=== PATIENT | female | born 1945 | race Caucasian/White ===

== ENCOUNTER 2016-06-12 02:37 | Inpatient (IN) ==
--- NOTE | 2016-06-09 14:45 | EKG Report ---
Test Performed on : 06/09/2016 2:26:11 PM Test Reason : PAT Blood Pressure : / mmHG Vent. Rate : 064 BPM Atrial Rate : 064 BPM P-R Int : 168 ms QRS Dur : 080 ms QT Int : 426 ms P-R-T Axes : 075 -22 -23 degrees QTc Int : 439 ms Sinus rhythm. with premature supraventricular complexes. and with occasional premature ventricular co mplexes. Low voltage QRS Nonspecific T wave abnormality Abnormal ECG When compared with ECG of 19-DEC-2009 10:01, premature ventricular complexes. are now present Nonspecific T wave abnormality, worse in Inferior leads Confirmed by Kolby PINO, Iker Smith ([id number]) on 06/09/2016 4:36:15 PM
[2016-06-09 15:03] LABS: HEMATOCRIT 42.4 % (37.0-47.0); HEMOGLOBIN 13.9 g/dL (12.0-16.0); MCH 28.3 PG (27-31); MCHC 32.8 g/dL (33-37); MCV 86.2 FL (81-99); MPV 11.6 FL (7.4-10.4); RBC 4.92 XMIL (4.2-5.4)
[2016-06-09 15:23] LABS: POTASSIUM 3.7 mmol/L (3.5-5.1)
[2016-06-12] MEDS ORDERED: PEPCID ONE (05:37)
[2016-06-12] MEDS ORDERED: REGLAN ONE (05:37)
[2016-06-12] MEDS ORDERED: ENTEREG ONE (05:38)
[2016-06-12] MEDS ORDERED: LR 1,000 ML ONE ×2 (05:38→09:40)
[2016-06-12] MEDS ORDERED: INVANZ 1 GM/NS 50 ML ONE (05:38)
[2016-06-12] MEDS ORDERED: DUONEB (A & A) INH ONE (06:23)
[2016-06-12] MEDS ORDERED: FENTANYL ONE (06:30)
[2016-06-12] MEDS ORDERED: DIPRIVAN 1% ONE (06:31)
[2016-06-12] MEDS ORDERED: DUONEB (A & A) ONE (06:34)
[2016-06-12] MEDS ORDERED: SODIUM CHLORIDE 0.9% 10 ML ONE (06:42)
[2016-06-12] MEDS ORDERED: MARCAINE 0.25% PF ONE (06:42)
[2016-06-12] MEDS ORDERED: EXPAREL 1.3% ONE (06:43)
[2016-06-12 08:23] LABS: URINE MICRO REVIEW NEEDED? NO; URINE SOURCE CATH
[2016-06-12 08:30] LABS: BILIRUBIN URINE NEGATIVE (NEGATIVE); BLOOD URINE NEGATIVE (NEGATIVE); COLOR YELLOW; GLUCOSE URINE NEGATIVE (NEGATIVE); LEUKOCYTES URINE NEGATIVE (NEGATIVE); NITRITE URINE NEGATIVE (NEGATIVE); PH URINE 6.5; PROTEIN URINE TRACE mg/dL (NEGATIVE); TURBIDITY URINE HAZY (CLEAR); UROBILINOGEN URINE NORMAL (NORMAL)
[2016-06-12 08:31] LABS: UR EPITHELIAL CELLS <10 /HPF (<10); URINE BACTERIA NEGATIVE /HPF; URINE RBC TNTC /HPF (<10); URINE WBC <10 /HPF (<10)
[2016-06-12] MEDS ORDERED: MORPHINE ONE ×2 (09:32→09:57)
[2016-06-12] MEDS ORDERED: NORCURON ONE (09:40)
[2016-06-12] MEDS ORDERED: ROBINUL ONE (09:40)
[2016-06-12] MEDS ORDERED: QUELICIN (DOSE) ONE (09:40)
[2016-06-12] MEDS ORDERED: DECADRON ONE (09:40)
[2016-06-12] MEDS ORDERED: XYLOCAINE-MPF 2% ONE (09:40)
[2016-06-12] MEDS ORDERED: EPHEDRINE ONE (09:40)
[2016-06-12] MEDS ORDERED: NEOSTIGMINE ONE (09:40)
[2016-06-12] MEDS ORDERED: ZOFRAN ONE (09:40)
[2016-06-12] MEDS ORDERED: D5 1/2 NS + KCL 20 MEQ 1,000 ML ONE (09:47)
--- NOTE | 2016-06-12 10:01 | OPERATIVE NOTE ---
PROCEDURE DATE: 06/12/2016 PREOPERATIVE DIAGNOSIS: Cecal polyp with dysplasia. POSTOPERATIVE DIAGNOSIS: Cecal polyp with dysplasia. PRINCIPAL PROCEDURE: Open right hemicolectomy. SURGEON: Karen Quiñones MD CASINO SHIFT MANAGER: Allie BRIGITTE. ANESTHESIA: General. She also underwent a TAP block prior to the incision. ESTIMATED BLOOD LOSS: 100 mL. DRAINS: None. INDICATIONS: Ms. Mackenzie Pacheco is a 71-year-old white female who is a patient of Dr. Jon. At [facility] she underwent a colonoscopy recently which documented a 2 cm polyp in the cecum that was removed by Dr. Jon. The pathology suggested dysplasia within this polyp and she was sent to us for consideration of resection. FINDINGS: She is elderly and slim. She has had an open right upper quadrant incision from cholecystectomy in the past. We performed a formal right hemicolectomy with an end-to-end distal ileum to mid transverse colon double-layer sewn anastomosis. We opened the specimen that was resected and no polyp was left within the cecum. No other lesion was noted in the cecum or the ascending colon. We palpated the rest of her abdomen and no pathology was noted. We felt we did the operation safely with minimal blood loss. DESCRIPTION OF PROCEDURE: The patient underwent a bowel prep at home and presented on the day of surgery. She received IV Invanz prior to surgery and she was also placed on the Entereg protocol. She underwent a TAP block after receiving general anesthesia per our anesthesiologist, Dr. Isrrael Vargas. Her abdomen was prepped and draped in a sterile field. We also placed a Stallworth catheter tube. We did not use an NG tube. An Ioban was placed on the skin and we made a midline incision centered around the umbilicus with a 10 blade scalpel. This incision was carried down through the subcutaneous tissue, in the midline fascia using cautery, and the abdomen was entered she had very little scarring from her previous open cholecystectomy. We mobilized the cecum and ascending colon by incising the peritoneum lateral to the ascending colon and then using blunt finger dissection to mobilize the colon up into our midline incision, we did use a large wound protector for retraction and protection of our wound. We had no contamination during this procedure of the abdomen. We mobilized the ascending colon and also the hepatic flexure to the middle colic vessels. All of this dissection was done mostly using the cautery. We transected the distal ileum approximately 4 cm proximal to the ileocecal valve with a blue load ARIANNA stapler. We transected the transverse colon proximal to the middle colic vessels again with a ARIANNA stapler. We used the cautery and hemostats to come across the blood supply within the mesentery and we did a formal cancer resection, taking the right colic vessels at their base. We used 3-0 silk ties to control these vessels except the larger vessels which we used 2-0 stick ties. The specimen was removed from the field and we performed an end-to-end double-layer sewn anastomosis between the distal ileum and the transverse colon. Our posterior layer was interrupted 3-0 silk stitches. We then removed the staple line using cautery and we used a double-armed, 3-0 Vicryl stitch to reinforce the posterior part of our anastomosis with an interlocking running stitch which was continued as a [place] stitch on the anterior wall of our anastomosis. We reinforced the anterior wall with 3-0 silk Lembert stitches. There was no tension on our anastomosis, blood supply was excellent, and we felt that the caliber of the anastomosis was good. We reapproximated the defect of the mesentery with interrupted 3-0 silk stitches. We thoroughly irrigated the abdomen, explored it thoroughly. No other colonic lesion was identified. We placed the bowel back in anatomically correct position. The remaining greater omentum was placed superficial to the bowel and we closed our midline incision in layers. The first layer was a running 0 Vicryl stitch to close the peritoneum and then we closed the fascia with a running #1 Maxon stitch. We thoroughly irrigated the midline incision and closed the skin with a skin clip rejected items clerk. Dressings were applied. We left her Stallworth catheter tube in place. We did not use an NG tube. She will go to the recovery room and plan to be admitted to the floor. I spoke with her family after the procedure.
[2016-06-12] MEDS ORDERED: TORADOL ONE (10:21)
[2016-06-12] MEDS ORDERED: ZOFRAN IV PRN (12:46)
[2016-06-12] MEDS: OFIRMEV 1000 MG/ISOTONIC SOLN 100 ML IV SCH ×3 (12:58→18:35)
[2016-06-12] MEDS: NORCO-7.5 PO PRN ×2 (12:58→15:19)
[2016-06-12] MEDS: D5 1/2 NS + KCL 20 MEQ 1,000 ML IV SCH (13:19)
[2016-06-12] MEDS: TORADOL IV SCH ×3 (14:29→21:46)
[2016-06-12] MEDS: DUONEB (A & A) INH SCH ×3 (15:21→23:10)
[2016-06-12] MEDS: LOPRESSOR PO SCH ×2 (15:40→20:08)
--- NOTE | 2016-06-12 18:21 | PROGRESS NOTE ---
DATE: 06/12/2016 NIGHT OF SURGERY PROGRESS NODE Ms. Mackenzie Pacheco is a 71-year-old, white female who I performed an open right hemicolectomy on earlier today because of a polyp with dysplasia in her cecum. We felt the operation went well. We performed an end ileum to end transverse colon double-layer sewn anastomosis. She is going to the recovery room and now is up on the floor. I have been called twice this afternoon by her nurse, once for abdominal pain. We are trying to avoid narcotics and she has multiple pain medicines ordered: Mobic, Toradol, IV Tylenol. She also had some nausea and has been given Zofran. I was also called by her nurse because she had passed some clots per rectum. That may have been bleeding from cutting the bowel with the stapler. On evaluation, she is resting comfortably in her bed. She is hemodynamically satisfactory with a heart rate of 69, blood pressure 199/86, O2 saturation 93% on nasal cannula O2. She does have a Stallworth catheter tube in place. There is no evidence of hematuria. She does have urine output. Her midline incision is dressed and dry.
[2016-06-12] MEDS: PERIDEX MT SCH (20:07)
[2016-06-13] MEDS: D5 1/2 NS + KCL 20 MEQ 1,000 ML IV SCH ×3 (00:48→16:19)
[2016-06-13] MEDS: OFIRMEV 1000 MG/ISOTONIC SOLN 100 ML IV SCH ×5 (00:48→18:08)
[2016-06-13] MEDS: DUONEB (A & A) INH SCH ×6 (03:40→22:47)
[2016-06-13] MEDS: TORADOL IV SCH ×3 (03:56→12:21)
[2016-06-13] MEDS: ZOFRAN IV PRN ×3 (03:57→18:08)
[2016-06-13] MEDS: LOVENOX SUBQ SCH (05:41)
[2016-06-13] MEDS ORDERED: ENTEREG PO SCH (09:00)
[2016-06-13] MEDS: MOBIC PO SCH (09:04)
[2016-06-13] MEDS: SYNTHROID PO SCH (09:04)
[2016-06-13] MEDS: LOPRESSOR PO SCH ×2 (09:06→20:12)
[2016-06-13] MEDS: PERIDEX MT SCH ×2 (09:07→20:12)
--- NOTE | 2016-06-13 10:18 | PROGRESS NOTE ---
DATE: 06/13/2016 SUBJECTIVE: Ms. Mackenzie Pacheco is now postop day 1 from an open right hemicolectomy. She is awake and wants to get out of bed. Her heart rate is 70, blood pressure 100/59, O2 saturation 99% on nasal cannula O2. She does have a history of smoking. She still has a Stallworth catheter tube in place. There is no hematuria and her urine output is adequate. Nurses states that she passed some blood per rectum last night, but there is no evidence of any blood per rectum this morning. She has been a little bit nauseated. She has been n.p.o. without an NG tube. PLAN: Tomorrow morning we will remove her Stallworth catheter tube and begin her on clear liquids. We will stop Entereg; we are trying avoid narcotics. She needs to increase her activity and I have discussed this with her nurse.
[2016-06-13] MEDS: NORCO-7.5 PO PRN ×2 (12:22→18:07)
[2016-06-14] MEDS: OFIRMEV 1000 MG/ISOTONIC SOLN 100 ML IV SCH ×3 (02:40→12:45)
[2016-06-14] MEDS: DUONEB (A & A) INH SCH ×5 (03:00→20:00)
[2016-06-14] MEDS: D5 1/2 NS + KCL 20 MEQ 1,000 ML IV SCH ×2 (06:30→17:06)
[2016-06-14] MEDS: LOVENOX SUBQ SCH (06:30)
[2016-06-14] MEDS: SYNTHROID PO SCH (09:00)
[2016-06-14] MEDS: NORCO-7.5 PO PRN (09:00)
[2016-06-14] MEDS: PERIDEX MT SCH ×2 (09:00→20:58)
[2016-06-14] MEDS: MOBIC PO SCH (09:00)
[2016-06-14] MEDS: LOPRESSOR PO SCH ×2 (09:00→20:58)
[2016-06-14] MEDS: ZOFRAN IV PRN (09:00)
--- NOTE | 2016-06-14 10:06 | PROGRESS NOTE ---
DATE: 06/14/2016 SUBJECTIVE: The patient is doing okay, although she is feeling some nausea. No major issues reported by the nursing staff. She has been afebrile. Her vital signs have been stable. She denies passage of flatus. OBJECTIVE: Vital Signs: Patient is currently afebrile. Her vital signs are stable. General: Resting in bed. Cardiovascular: Regular rate and rhythm. Lungs: Grossly clear. Abdomen: Soft, appropriately tender. Incision with dressing in place. Hypoactive bowel sounds auscultated. ASSESSMENT/PLAN: A 71-year-old female, now postop day 2 from a right hemicolectomy. 1. Postoperative day #2. 2. At this time, patient's Stallworth is to be removed. She is started on a clear liquid diet. We will keep her on this given her nausea and monitor her overall. cc: MD Karen Doan MD
[2016-06-15] MEDS: DUONEB (A & A) INH SCH ×7 (00:01→22:59)
[2016-06-15] MEDS: OFIRMEV 1000 MG/ISOTONIC SOLN 100 ML IV SCH ×4 (02:31→18:59)
[2016-06-15] MEDS: D5 1/2 NS + KCL 20 MEQ 1,000 ML IV SCH ×4 (06:49→18:59)
[2016-06-15] MEDS: LOVENOX SUBQ SCH (06:52)
--- NOTE | 2016-06-15 06:58 | PROGRESS NOTE ---
DATE: 06/15/2016 SUBJECTIVE: Patient doing okay. Tolerated her liquids. She had a small bowel movement that by description sounded like old blood but no major issues. OBJECTIVE: Vital Signs: Patient is currently afebrile. Her vital signs have been stable. General Examination: No acute distress. Cardiovascular: Regular rate and rhythm. Lungs: Grossly clear. Abdomen: Soft, appropriately tender, nondistended. Incision with dressing in place. Bowel sounds auscultated. ASSESSMENT/PLAN: A 71-year-old, female now postoperative day #3 from a right hemicolectomy. Postoperative day #3. At this time, patient has tolerated a clear liquid diet. We will advance her to full liquids. We will continue to wait return of bowel function. Her Stallworth catheter is out and she is able to void. We will continue to monitor. cc: MD Karen Doan MD
[2016-06-15] MEDS: PERIDEX MT SCH ×2 (09:00→20:03)
[2016-06-15] MEDS: LOPRESSOR PO SCH ×2 (09:00→20:03)
[2016-06-15] MEDS: ZOFRAN IV PRN (09:00)
[2016-06-15] MEDS: MOBIC PO SCH (09:00)
[2016-06-15] MEDS: SYNTHROID PO SCH (09:00)
[2016-06-15] MEDS: NORCO-7.5 PO PRN (14:18)
[2016-06-16] MEDS: D5 1/2 NS + KCL 20 MEQ 1,000 ML IV SCH ×2 (02:17→06:53)
[2016-06-16] MEDS: OFIRMEV 1000 MG/ISOTONIC SOLN 100 ML IV SCH ×2 (02:17→06:33)
[2016-06-16] MEDS: DUONEB (A & A) INH SCH ×6 (03:30→23:00)
[2016-06-16] MEDS: LOVENOX SUBQ SCH (06:33)
[2016-06-16] MEDS ORDERED: TYLENOL PO PRN (07:37)
--- NOTE | 2016-06-16 08:01 | PROGRESS NOTE ---
DATE: 06/16/2016 SUBJECTIVE: Ms. Pacheco is postop day 4 from a right hemicolectomy. Her postoperative convalescence has been normal. She is tolerating a full liquid diet and will advance her diet to a regular diet. We will stop her IV Tylenol and she is on all p.o. pain medicine. We will Hep- Lock her IV fluids. OBJECTIVE: Vital signs: Her heart rate is 63, blood pressure 102/47, O2 saturation 96%. Her T- max is 99 degrees on no antibiotics. Abdomen: Her midline incision is healing without infection. Her abdomen is soft. She has had bowel activity. cc: Karen Quiñones MD
[2016-06-16] MEDS: SYNTHROID PO SCH (08:21)
[2016-06-16] MEDS: LOPRESSOR PO SCH ×2 (08:21→20:59)
[2016-06-16] MEDS: PERIDEX MT SCH ×2 (08:22→20:59)
[2016-06-16] MEDS: MOBIC PO SCH (08:22)
[2016-06-16] MEDS: ZOFRAN IV PRN ×2 (10:57→19:01)
[2016-06-16] MEDS: NORCO-7.5 PO PRN (19:00)
[2016-06-17] MEDS: DUONEB (A & A) INH SCH ×4 (03:25→15:18)
[2016-06-17] MEDS: LOVENOX SUBQ SCH (06:42)
[2016-06-17] MEDS: LOPRESSOR PO SCH (08:23)
[2016-06-17] MEDS: PERIDEX MT SCH (08:24)
[2016-06-17] MEDS: SYNTHROID PO SCH (08:24)
[2016-06-17] MEDS: MOBIC PO SCH (08:24)
[2016-06-17 15:53] VITALS: BP 147/64
[2016-06-17] MEDS: ZOFRAN IV PRN (16:18)
--- NOTE | 2016-06-18 05:32 | DISCHARGE SUMMARY ---
ADMISSION DATE: 06/12/2016 DISCHARGE DATE: 06/17/2016 ADMITTING DIAGNOSIS: Polyp with dysplasia in the cecum. DISCHARGE DIAGNOSIS: Polyp with dysplasia in the cecum. PRINCIPAL PROCEDURE: Open right hemicolectomy with a sewn end to end distal ileum to mid transverse colon anastomosis on 05/16/2016. DISCHARGE DISABILITY: Full. DISCHARGE DIET: Regular. DISCHARGE MEDICATIONS: She is to return to her home medications. HOSPITAL COURSE: Ms. Mackenzie Pacheco is a 71-year-old white female who recently underwent a colonoscopy by Dr. Jon. She had a polyp removed that showed dysplasia and she was sent to us for resection. It was described as being in the cecum. She underwent a bowel prep prior to her presentation. She was given oral antibiotics and then IV Invanz. She was started on our Entereg protocol. She went to the operating room and underwent an open right hemicolectomy with a sewn end to distal ileum to mid transverse colon anastomosis. We felt the surgery went well. I opened the specimen while in the operating room, and there was no evidence of this polyp or any other growth in the cecum. The rest of her abdomen was felt to be normal with no other pathology. We felt we did the operation well. We did not use an NG tube. She did have a Stallworth catheter tube. She went to the recovery room and then to the floor where we feel that her postoperative convalescence has been normal. At discharge, her incision was healing well. She was tolerating a diet. She is having bowel activity. Her abdomen was flat. She was afebrile. She will be discharged home under the care of her family with followup in our outpatient offices in a week for skin clip removal. Her pathology report is pending. cc: MD Heber Benoit MD
== END 2016-06-17 17:00 | disposition home or self-care (01) ==
LOC: SURHOLD 02:37 → 4N 11:52
PROVIDERS: ADMIT Surgery; ATTEND Surgery

== ENCOUNTER 2016-08-21 14:02 | Inpatient (IN) ==
[2016-08-21] MEDS ORDERED: ASPIRIN PO ONE (14:16)
[2016-08-21] MEDS ORDERED: DUONEB (A & A) INH ONE (14:20)
[2016-08-21] MEDS ORDERED: SOLU-MEDROL IV ONE (14:20)
[2016-08-21] MEDS ORDERED: PULMICORT INH ONE (14:20)
--- NOTE | 2016-08-21 14:34 | EKG Report ---
Test Performed on : 08/21/2016 2:27:52 PM Test Reason : sob cp Blood Pressure : / mmHG Vent. Rate : 076 BPM Atrial Rate : 076 BPM P-R Int : 152 ms QRS Dur : 082 ms QT Int : 426 ms P-R-T Axes : 074 -04 033 degrees QTc Int : 479 ms Sinus rhythm. with occasional premature ventricular complexes. Nonspecific ST and T wave abnormality Abnormal ECG When compared with ECG of 09-JUN-2016 14:26, premature supraventricular complexes. are no longer present Nonspecific T wave abnormality, improved in Inferior leads Unconfirmed Result
[2016-08-21 14:35] LABS: BASO% 0.2 % (0.0-0.8); HEMATOCRIT 23.2 % (37.0-47.0); HEMOGLOBIN 6.1 g/dL (12.0-16.0); IMM GRAN# 0.04 X1000 (0.0-0.04); IMM GRAN% 0.6 % (0.0-0.5); LYMPH# 1.28 X1000 (1.2-3.4); LYMPH% 19.6 % (20.5-51.1); MANUAL DIFF NEEDED? NO; MCH 17.6 PG (27-31); MCHC 26.3 g/dL (33-37); MCV 67.1 FL (81-99); MONO# 0.43 X1000 (0.11-0.59); MONO% 6.6 % (1.7-9.3); PLT 257 X1000 (130-400); RBC 3.46 XMIL (4.2-5.4)
[2016-08-21 14:56] LABS: AGAP 13; ALBUMIN 3.9 g/dL (3.5-5.0); ALKALINE PHOSPHATASE 83 U/L (32-104); BUN 13 mg/dL (8-22); CALCIUM 8.8 mg/dL (8.8-10.2); CHLORIDE 102 mmol/L (98-107); CK PROFILE 19 U/L (24-173); COSMO 279; GOT 10 U/L (10-30); GPT 5 U/L (10-36); SODIUM 139 mmol/L (136-145); TCO2 24 mmol/L (25-35); TOTAL PROTEIN 6.6 g/dL (6.3-8.3)
--- NOTE | 2016-08-21 15:22 | Diag Imaging Result Doc PS360 ---
CHEST-2 VIEWS - 08/21/2016 INDICATION: soc copd cp TECHNIQUE: COMPARISON: 01/09/2016 FINDINGS: Stable moderate hiatal hernia behind the heart. The lungs are clear. Heart size is grossly normal. No pneumothorax or pleural effusion. IMPRESSION: Hiatal hernia. No acute disease or change from prior. Electronically signed by Kahlil Langston 08/21/2016 3:19 PM
[2016-08-21] MEDS ORDERED: MORPHINE IV ONE ×2 (15:57→15:58)
[2016-08-21] MEDS ORDERED: ZOFRAN IV ONE (15:57)
[2016-08-21 16:10] LABS: BLOOD TYPE ARTERIAL; DRAW SITE R RADIAL; METHB 1.3 % (0.0-1.5); O2(CT) 8.5 mL/dL (15.0-23.0); PCO2(98.6) 35 mmHg (35-45); PO2(98.6) 58 mmHg (60-100); SAMPLE BLOOD; THB 6.6 g/dL (11.5-17.4); pH(98.6) 7.46 (7.35-7.45)
[2016-08-21 16:14] LABS: ALLEN TEST YES; MODALITY ROOM AIR
[2016-08-21 16:31] LABS: URINE CULTURE PL NEEDED? NO
[2016-08-21] MEDS ORDERED: KLOR-CON PO ONE (16:42)
[2016-08-21] MEDS ORDERED: LEVAQUIN 500 MG/D5W 500 MG/100 ML IVPB IV SCH (16:45)
[2016-08-21 16:48] LABS: OCCULT BLOOD 1 NEGATIVE (NEGATIVE)
--- NOTE | 2016-08-21 16:49 | PROVIDER DOCUMENTATION ---
This chart was entered by Maria Elena Munoz Scribe, acting as scribe for Adilene Gatica MD. HPI-Respiratory General - General Chief Complaint: Shortness of Breath Stated Complaint: SOB/CHEST PAIN Time Seen by Provider: 08/21/16 14:12 Source: patient Allergies/Adverse Reactions: Patient Allergies Allergy/AdvReac Type Severity Reaction Status Date / Time No Known Allergies Allergy Verified 03/12/14 10:13 Home Medications: Home Medication List Medication Instructions Recorded Confirmed Last Taken Type Levothyroxine [Synthroid] 75 mcg DAILY 03/23/15 06/12/16 06/12/16 04:00 History Meloxicam [Mobic] 1 tab PO DAILY 01/09/16 06/09/16 06/08/16 History Metoprolol Tartrate 50 mg PO BID 06/09/16 06/12/16 06/05/16 09:00 History - History of Present Illness-Resp Nature of Presenting Problem: 71 yo F presents to the ER with complaint of SOB and cough. Pt was at PCP yesterday and diagnosed with penumonia. States she got a nebulizer machine yesterday but is waiting for the medicine to come. Was given steroids and levoquin, but states no relief. Has chest tightness. Cough Quality/Degree: reports: moderate Current Respiratory Medication Therapy: Initiated prednisone Associated Symptoms: reports: chest pain/soreness, cough, shortness of breath, short of breath Review of Systems - Adult - REVIEW OF SYSTEMS - ADULT Constitutional: denies: chills, fever Eyes: reports: no symptoms reported Ears, Nose, Mouth & Throat: reports: no symptoms reported Cardiovascular: reports: chest pain. denies: palpitations Respiratory: reports: cough, shortness of breath Gastrointestinal: denies: diarrhea, nausea, vomiting Genitourinary: reports: no symptoms reported Musculoskeletal: reports: no symptoms reported Integumentary: reports: no symptoms reported Neurological: reports: no symptoms reported Psychiatric: reports: no symptoms reported Endocrine: reports: no symptoms reported Hematologic/Lymphatic: reports: no symptoms reported Allergic/Immunologic: reports: no symptoms reported All Other Systems: Reviewed and Negative Past History - Adult - PAST MEDICAL HISTORY-ADULT Review of Records: reports: Nursing Assessment Review, Medications Reviewed Cardiovascular: reports: arrhythmia, HTN Respiratory: reports: asthma Endocrine/Immune: reports: thyroid disorder - PRIOR SURGERIES/PROCEDURES Surgical/Procedure History: reports: appendectomy, cholecystectomy, other ( partial colon resection) - IMMUNIZATION STATUS Childhood Immunizations: See Nurse Assessment Flu Vaccine: See Nurse Assessment Physical Exam-General - PHYSICAL EXAM-ADULT Initial Vital Signs Reviewed: Yes - CONSTITUTIONAL General Appearance: alert, no apparent distress - EYES Eyes: PERRL/EOMI, pink conjunctivae - HEAD, EARS, NOSE, MOUTH & THROAT HENMT: normocephalic/atraumatic, normal ENT inspection - NECK Neck: supple, normal inspection - RESPIRATORY Respiratory: no respiratory distress, no accessory muscle use, decreased breath sounds - CARDIOVASCULAR Cardiovascular: normal peripheral pulses, regular rate, rhythm - GASTROINTESTINAL (ABDOMEN) Abdominal Exam: normal bowel sounds, non tender, soft - MUSCULOSKELETAL Back Exam: no CVA tenderness, no vertebral tenderness Extremity: normal gait, normal inspection - SKIN Integumentary: normal color, warm/dry - NEUROLOGIC Neurologic: grossly normal, no motor/sensory deficits - PSYCHIATRIC Psych/Mental Status: normal mood/affect, normal thought content, normal thought process, oriented x 3 Progress - PLAN OF CARE/RESULTS Progress/Plan/Lab Results: Vital Signs - 8 hr 08/21/16 14:11 08/21/16 14:20 08/21/16 15:05 Temperature 98.9 F Pulse Rate 82 98 H 93 H Respiratory Rate 18 16 22 Blood Pressure 165/70 159/78 O2 Sat by Pulse Oximetry 100 96 08/21/16 16:31 Temperature Pulse Rate 81 Respiratory Rate 18 Blood Pressure 151/77 O2 Sat by Pulse Oximetry 94 L Laboratory Results - last 24 hr 08/21/16 08/21/16 08/21/16 14:18 14:18 14:18 WBC 6.53 RBC 3.46 L Hgb 6.1 L Hct 23.2 L MCV 67.1 L MCH 17.6 L MCHC 26.3 L RDW Std Deviation 21.4 H Plt Count 257 MPV Not Reportable Immature Gran % (Auto) 0.6 H Neut % (Auto) 73.0 Lymph % (Auto) 19.6 L [place] % (Auto) 6.6 Eos % (Auto) 0.0 Baso % (Auto) 0.2 Immature Gran # (Auto) 0.04 Neut # (Auto) 4.77 Lymph # (Auto) 1.28 [place] # (Auto) 0.43 Eos # (Auto) 0.00 Baso # (Auto) 0.01 D-Dimer Specimen Type Sample Site pH pCO2 pO2 HCO3 Base Excess Oxyhemoglobin ABG O2 Sat (Calculated) ABG O2 Saturation ABG Carboxyhemoglobin ABG Methemoglobin Iker Test A-a O2 Difference Total Hemoglobin Lactate Blood Gas Modality FiO2 % Sodium 139 Potassium 3.0 L Chloride 102 Carbon Dioxide 24 L Anion Gap 13 BUN 13 Creatinine 0.8 Estimated GFR/1.73 m2 > 60 BUN/Creatinine Ratio 16 Glucose 126 H Calculated Osmolality 279 Calcium 8.8 Magnesium Total Bilirubin 0.30 AST 10 ALT 5 L Alkaline Phosphatase 83 Creatine Kinase 19 L Fwv-[id number]-Gluagjljtdq Pept 4332 H Total Protein 6.6 Albumin 3.9 Globulin 3.0 Albumin/Globulin Ratio 1.0 Plasma Lactate 08/21/16 08/21/16 08/21/16 14:18 14:18 14:30 WBC RBC Hgb Hct MCV MCH MCHC RDW Std Deviation Plt Count MPV Immature Gran % (Auto) Neut % (Auto) Lymph % (Auto) [place] % (Auto) Eos % (Auto) Baso % (Auto) Immature Gran # (Auto) Neut # (Auto) Lymph # (Auto) [place] # (Auto) Eos # (Auto) Baso # (Auto) D-Dimer 0.65 H Specimen Type Sample Site pH pCO2 pO2 HCO3 Base Excess Oxyhemoglobin ABG O2 Sat (Calculated) ABG O2 Saturation ABG Carboxyhemoglobin ABG Methemoglobin Iker Test A-a O2 Difference Total Hemoglobin Lactate Blood Gas Modality FiO2 % Sodium Potassium Chloride Carbon Dioxide Anion Gap BUN Creatinine Estimated GFR/1.73 m2 BUN/Creatinine Ratio Glucose Calculated Osmolality Calcium Magnesium 2.0 Total Bilirubin AST ALT Alkaline Phosphatase Creatine Kinase Fki-Z-Ilfjfeimryg Pept Total Protein Albumin Globulin Albumin/Globulin Ratio Plasma Lactate 2.5 H 08/21/16 15:50 WBC RBC Hgb Hct MCV MCH MCHC RDW Std Deviation Plt Count MPV Immature Gran % (Auto) Neut % (Auto) Lymph % (Auto) [place] % (Auto) Eos % (Auto) Baso % (Auto) Immature Gran # (Auto) Neut # (Auto) Lymph # (Auto) [place] # (Auto) Eos # (Auto) Baso # (Auto) D-Dimer Specimen Type ARTERIAL Sample Site R RADIAL pH 7.46 H pCO2 35 pO2 58 L HCO3 25.7 Base Excess 1.0 Oxyhemoglobin 90.6 L ABG O2 Sat (Calculated) 8.5 L ABG O2 Saturation 97.0 ABG Carboxyhemoglobin 5.30 H* ABG Methemoglobin 1.3 Iker Test YES A-a O2 Difference 48.0 Total Hemoglobin 6.6 L Lactate 2.40 H Blood Gas Modality ROOM AIR FiO2 % 21.0 Sodium Potassium Chloride Carbon Dioxide Anion Gap BUN Creatinine Estimated GFR/1.73 m2 BUN/Creatinine Ratio Glucose Calculated Osmolality Calcium Magnesium Total Bilirubin AST ALT Alkaline Phosphatase Creatine Kinase Ibw-S-Wonzsdbvfzz Pept Total Protein Albumin Globulin Albumin/Globulin Ratio Plasma Lactate Orders Category Date Time Status Cardiac Monitoring DIRECTED Care 08/21/16 14:16 Active CHEST-2 VIEWS [RAD] Stat Exams 08/21/16 14:16 Completed ABG [RESP] Routine Lab 08/21/16 15:50 Completed BLOOD CULTURE [BLDCUL] Stat Lab 08/21/16 14:20 Ordered CBC WITH DIFF [HEME] Stat Lab 08/21/16 14:18 Completed CK PROFILE [SP CHEM] Stat Lab 08/21/16 14:18 Completed COMPREHENSIVE METABOLIC PANEL [CHEM] Stat Lab 08/21/16 14:18 Completed D-DIMER PL [COAG] Stat Lab 08/21/16 14:18 Completed LACTATE, PLASMA [CHEM] Stat Lab 08/21/16 14:30 Completed MAGNESIUM [CHEM] Stat Lab 08/21/16 14:18 Completed OCCULT BLOOD SCREEN STOOL PL Stat Lab 08/21/16 16:31 Ordered PRO B-NATRIURETIC PEPTIDE Stat Lab 08/21/16 14:18 Completed TYPE & SCREEN [BBK] Stat Lab 08/21/16 16:00 Ordered ua [URINALYSIS PL W/POSS RFLX CULT] [URINALYSIS] Stat Lab 08/21/16 16:15 Received Albuterol 2.5MG/Ipratrop 0.5MG [Duoneb (A & A)] Med 08/21/16 14:20 Discontinued 3 ml INH NOW ONE Aspirin Med 08/21/16 14:16 Discontinued 325 mg PO NOW ONE Budesonide [Pulmicort] Med 08/21/16 14:20 Discontinued 0.5 mg INH NOW ONE Levofloxacin 500 mg/D5w [Levaquin 500 mg/D5w] Med 08/21/16 16:45 Active 500 mg in 100 ml IV Q24H Methylprednisolone Sod Succ [Solu-Medrol] Med 08/21/16 14:20 Discontinued 125 mg IV NOW ONE Morphine Med 08/21/16 15:58 Discontinued 2 mg IV NOW ONE Ondansetron [Zofran] Med 08/21/16 15:57 Discontinued 4 mg IV NOW ONE Potassium Chloride E.r. [Klor-Con] Med 08/21/16 16:42 Discontinued 40 meq PO NOW ONE Aerosol Treatments Routine Oth 08/21/16 14:20 Completed Aerosol Treatments Stat Oth 08/21/16 14:20 Completed EKG [EKG] Stat Ther 08/21/16 14:16 Draft Result Diagrams: 08/21/16 14:18 08/21/16 14:18 - EKG 1 Time of EKG reading by physician:: 14:27 EKG Read and Signed by:: Adilene Gatica EKG Interpretation (*Must complete 3 of following elements*): Abnormal Rate: 76 Rhythm: sinus rhythm with occasional PVC [place]: normal QRS: normal ST Wave: non-specific ST changes - XRAY 1 XRAY Study: Chest Impression: Abnormal (hiatal hernia, NAD or change from prior, per radiologist) - CONSULTS/PCP/HOSPITALIST Notification #1 *Consult/PCP/Hospitalist*: Dr. Almaguer Time Discussed: 16:45 Consult Disposition: Admit Departure - Departure Date of Disposition Decision: 08/21/16 Time of Disposition Decision: 16:45 DIAGNOSIS: Pneumonia, Chest pain Anemia Qualifiers: Anemia type: unspecified type Qualified Code(s): D64.9 - Anemia, unspecified CHF (congestive heart failure) Qualifiers: Congestive heart failure type: unspecified congestive heart failure type Congestive heart failure chronicity: acute Qualified Code(s): I50.9 - Heart failure, unspecified Disposition: ADMITTED INPATIENT 09 Certified Medical Emergency: Emergent Condition: Stable Referrals and Follow-Ups: Marcy Head CRNP [Primary Care Provider] - - Critical Care Note This patient required my direct & personal management of CC.: No This chart was documented by the indicated scribe, (Maria Elena Munoz Scribe) and accurately reflects the services I performed and decisions made by me, Adilene Gatica MD, as attested by the provider's signature.
[2016-08-21 17:07] LABS: BILIRUBIN URINE NEGATIVE (NEGATIVE); BLOOD URINE NEGATIVE (NEGATIVE); CLARITY CLEAR (CLEAR); COLOR YELLOW; GLUCOSE URINE NEGATIVE (NEGATIVE); LEUKOCYTES URINE NEGATIVE (NEGATIVE); NITRITE URINE NEGATIVE (NEGATIVE); PROTEIN URINE TRACE mg/dL (NEGATIVE); UROBILINOGEN URINE NORMAL
[2016-08-21 17:14] LABS: URINE EPITHELIAL CELLS <10 /HPF (<10); URINE RBC <10 /HPF (<10); URINE SOURCE CLEAN CATCH; URINE WBC <10 /HPF (<10)
[2016-08-21] MEDS ORDERED: TYLENOL PO ONE (19:22)
[2016-08-21] MEDS ORDERED: BENADRYL PO ONE ×2 (19:22→22:15)
[2016-08-21] MEDS ORDERED: TYLENOL PO PRN (19:23)
[2016-08-21] MEDS ORDERED: SALINE LOCK IV FLUID XX ONE (19:23)
[2016-08-21] MEDS ORDERED: ZOFRAN IV PRN (19:23)
[2016-08-21] MEDS ORDERED: BENADRYL ONE (22:01)
[2016-08-21] MEDS: LOPRESSOR PO SCH (22:05)
[2016-08-21] MEDS ORDERED: NS 1,000 ML ONE (22:09)
[2016-08-21] MEDS: NICODERM PATCH TD SCH (22:49)
[2016-08-22] MEDS: LASIX IV SCH ×2 (01:25→04:39)
[2016-08-22] MEDS ORDERED: LASIX ONE (04:37)
[2016-08-22] MEDS ORDERED: PRILOSEC PO SCH (07:00)
[2016-08-22] MEDS ORDERED: SYNTHROID PO SCH (07:30)
[2016-08-22 07:54] LABS: HEMOGLOBIN 9.5 g/dL (12.0-16.0); MCH 20.8 PG (27-31); MCHC 29.7 g/dL (33-37); PLT 255 X1000 (130-400); RBC 4.57 XMIL (4.2-5.4)
[2016-08-22 08:16] LABS: AGAP 12; ALBUMIN 4.1 g/dL (3.5-5.0); ALKALINE PHOSPHATASE 83 U/L (32-104); BUN 16 mg/dL (8-22); CALCIUM 9.6 mg/dL (8.8-10.2); CHLORIDE 101 mmol/L (98-107); COSMO 283; GOT 10 U/L (10-30); GPT 6 U/L (10-36); HDL 47 mg/dL (45-65); LDL 62 mg/dL; POTASSIUM 4.2 mmol/L (3.5-5.1); SODIUM 141 mmol/L (136-145); TCO2 28 mmol/L (25-35); TOTAL PROTEIN 6.5 g/dL (6.3-8.3); TRIGLYCERIDES 55 mg/dL (35-135); VLDL 11 mg/dL
[2016-08-22 08:18] LABS: FREE T4 1.26 ng/dL (0.93-1.70)
[2016-08-22] MEDS ORDERED: ASPIRIN EC PO SCH (09:00)
[2016-08-22] MEDS ORDERED: THERA M PLUS PO SCH (09:00)
[2016-08-22] MEDS: LOPRESSOR PO SCH (09:43)
[2016-08-22] MEDS: NICODERM PATCH TD SCH (09:43)
--- NOTE | 2016-08-22 11:05 | HISTORY AND PHYSICAL ---
PRIMARY CARE PHYSICIAN: SHIVANI Crawford in [place]. CHIEF COMPLAINT: Shortness of breath and cough. HISTORY OF PRESENTING ILLNESS: This is a 71-year-old, female, who presents to [facility] ER with complaints of shortness of breath and cough that had progressively worsened. States on 08/20/2016 she saw her primary care physician and had been diagnosed with pneumonia. Was started on Levaquin and steroids. States she did not have any relief in her symptoms. She came to the emergency room. We did a chest x-ray that did not show any acute disease or change. It is noted that she had a partial colon resection on 06/12/2016 and was discharged on 06/17/2016. Her laboratory data showed a hemoglobin of 6.1 and hematocrit of 23.2. Her D-dimer was 0.65, but that is most likely related to her recent abdominal surgery. Her potassium was 3.0. ProBNP was 4332 with a plasma lactate of 2.5. We did do a Hemoccult of her stool and it was negative, so she was admitted for further evaluation and treatment. PAST MEDICAL HISTORY: Hypertension, asthma and hypothyroidism. PAST SURGICAL HISTORY: An appendectomy, cholecystectomy and partial colon resection. FAMILY HISTORY: Heart disease in her father and son, hypothyroidism in her daughter. SOCIAL HISTORY: She currently lives with her son. Smokes a half a pack a day for the past 40 years. Denied any alcohol or illicit drug use. ALLERGIES: She has no known drug allergies. HOME MEDICATIONS: She takes Synthroid 75 mcg p.o. daily, metoprolol 50 mg p.o. b.i.d., and a multivitamin 1 p.o. daily. LABORATORY DATA: Showed a white blood cell count of 6.53, a hemoglobin of 6.1, hematocrit 23.2, platelets 257. D-dimer of 0.65. An ABG with a pH of 7.46, pCO2 of 35, PO2 58, bicarbonate of 25.7. Sodium of 139, potassium 3.0, chloride 102, CO2 24, BUN of 13, creatinine 0.8, glucose 126, magnesium of 2.0. AST 10, ALT 5. Cardiac enzymes were negative. ProBNP of 4332. Plasma lactate of 2.5. Urinalysis was negative and stool for occult blood was negative. IMAGING: Chest x-ray showed no acute disease or change from prior. EKG showed sinus rhythm with occasional PVCs at 76. REVIEW OF SYSTEMS: She denied any fever, chills, blurred vision, some mild dizziness, shortness of breath, cough. Denied any chest pain, abdominal pain, nausea, vomiting, constipation, diarrhea, or burning or hurting with urination. PHYSICAL EXAMINATION: VITAL SIGNS: On arrival, she had a temperature of 98.9 degrees, a pulse of 82, respirations 18, blood pressure 165/70, satting 100% on room air. GENERAL: This is a 71-year-old, female, who is lying in the bed and answers questions appropriately. HEENT: Normocephalic and atraumatic. Pupils are equal, round, reactive to light. The extraocular movements are intact. The oropharynx and nares are clear. NECK: Supple. LUNGS: Clear to auscultation bilaterally with equal lung expansion and chest wall movement. HEART: With regular rate and rhythm. No murmurs, rubs, or gallops. ABDOMEN: Soft, nontender, nondistended. Bowel sounds are present x4 quadrants. EXTREMITIES: No clubbing, cyanosis, or edema. NEUROLOGICAL: The cranial nerves 2-12 are grossly intact. ASSESSMENT: 1. Anemia, most likely secondary to her recent partial colon resection. 2. Dyspnea, secondary to her anemia. 3. Hypokalemia. 4. Tobacco abuse. PLAN: She was admitted to the medical unit at [facility]. She was given 2 units of packed red blood cells. Placed on telemetry. We will check an echocardiogram. She was initially started on some Levaquin 500 mg IV q. 24 hours for presumed pneumonia, but her chest x-ray was clear. So, we will stop that. Continue her home medications. She was supplemented with 40 mEq of potassium p.o. x1. We will recheck CBC and a BMP in the a.m. She was also given 40 mg of Lasix IV after her transfusions were completed. We also gave a nicotine patch 21 mg transdermally daily. Pt is a full code. Dictated by SHIVANI Nguyen for Finn Almaguer MD cc: SHIVANI Nguyen MD Jennifer Beatty, CRNP [facility]ITALAndrew
[2016-08-22 11:23] VITALS: BP 133/64
--- NOTE | 2016-08-22 14:15 | DISCHARGE SUMMARY ---
ADMISSION DATE: 08/21/2016 DISCHARGE DATE: 08/22/2016 PRIMARY CARE PHYSICIAN: SHIVANI Crawford ADMISSION DIAGNOSES: 1. Anemia, most likely secondary to her recent partial colon resection. 2. Dyspnea secondary to her anemia. 3. Hypokalemia. 4. Tobacco abuse. DISCHARGE DIAGNOSES: 1. Anemia resolved. 2. Dyspnea secondary to anemia resolved. 3. Hypokalemia resolved. 4. Tobacco abuse. SUMMARY OF FINDINGS: This is a 71-year-old, female who presented with complaints of shortness of breath and cough that had progressively worsened. States that she saw her primary care physician on 08/20/2016 and had been diagnosed with a pneumonia and was started on Levaquin and steroids with no relief in her symptoms so she came to the emergency room. We did a chest x- ray that did not show any acute disease or change. She was noted to have had a partial colon resection: 06/12/2016 and was discharged on 06/17/2016. Workup in the ER showed an hemoglobin and hematocrit of 6.1 and 23.2 with a D-dimer of 0.65 that was most likely related to her recent abdominal surgery. She was given 2 units of packed red blood cells. Now her hemoglobin and hematocrit are up to 9.5 and 32. We supplemented her potassium that was 3.0 and it is now up to 4.2. We did a Hemoccult of her stool that was negative and so it is felt that she can safely be discharged home today. DISCHARGE MEDICATION: Will include her home medications as follows: Levothyroxine 75 mcg p.o. daily, metoprolol 50 mg p.o. b.i.d., multivitamin with iron 1 p.o. daily. FOLLOWUP: She will need to follow up with her primary care physician in 1-2 weeks. DISCHARGE INSTRUCTIONS: All discharge instructions have been reviewed with the patient and she verbalized understanding. TIME SPENT: A 35-minute discharge. Dictated by SHIVANI Nguyen for Finn Almaguer MD cc: SHIVANI Crawford CRNP [facility] S. Cheatham, MD
--- NOTE | 2016-08-22 15:56 | ECHO REPORT ---
ORDER DATE: 08/22/2016 INDICATION: Elevated proBNP, shortness of breath, chest pain. FINDINGS: 1. Right atrium is normal in size at 3.3 cm. 2. Mild tricuspid regurgitation. 3. RV systolic pressure of 57. 4. Normal RV size and systolic function. 5. No significant pulmonic insufficiency. 6. Mild left atrial enlargement at 4 cm. 7. No mitral prolapse. There is mild mitral annular calcification, as well as mild mitral regurgitation. No evidence of mitral stenosis. 8. Normal LV size, end-diastolic dimension of 4.4. Moderate left ventricular hypertrophy with a posterior and interventricular septal wall thickness 1.5 cm each. Normal LV systolic function. Calculated EF of 69% with normal wall motion. 9. Aortic valve opens well. It is trileaflet. No evidence of stenosis or insufficiency. 10. Aorta appears normal in visualized segments. 11. No pericardial effusion is seen. cc: MD Radha Rod CRNP
== END 2016-08-22 13:10 | disposition home health service (06) ==
LOC: P.ED 14:02 → P.MEDSURG 17:34
PROVIDERS: ATTEND Family Medicine

== ENCOUNTER 2019-03-06 12:29 | Inpatient (IN) ==
[2019-03-06] MEDS ORDERED: DUONEB (A & A) INH ONE (12:44)
[2019-03-06] MEDS ORDERED: ROCEPHIN 1 GM in NS 50 ML IV ONE (12:44)
[2019-03-06] MEDS ORDERED: ZITHROMAX 500 MG/NS 500 MG/250 ML IVPB IV ONE (12:44)
[2019-03-06] MEDS ORDERED: SOLU-MEDROL IV ONE (12:44)
[2019-03-06] MEDS ORDERED: NS 1,000 ML IV ONE ×2 (12:46)
--- NOTE | 2019-03-06 12:56 | EKG Report ---
Test Performed on : 03/06/2019 12:46:57 PM Test Reason : tachycardic Blood Pressure : / mmHG Vent. Rate : 115 BPM Atrial Rate : 117 BPM P-R Int : 146 ms QRS Dur : 080 ms QT Int : 356 ms P-R-T Axes : 063 -16 066 degrees QTc Int : 492 ms Undetermined rhythm Nonspecific ST abnormality Abnormal ECG When compared with ECG of 05-DEC-2016 19:54, Current undetermined rhythm precludes rhythm comparison, needs review ST now depressed in Anterior leads Confirmed by Armen PINO, Nilesh ([id number]), digital editor Saniya Ndiaye ([id number]) on 04/18/2019 12:37:42 PM
[2019-03-06 13:13] LABS: BASO# 0.01 X1000 (0.0-0.2); HEMATOCRIT 46.2 % (37.0-47.0); HEMOGLOBIN 14.8 g/dL (12.0-16.0); IMM GRAN# 0.06 X1000 (0.0-0.04); IMM GRAN% 0.3 % (0.0-0.5); LYMPH# 0.38 X1000 (1.2-3.4); LYMPH% 1.6 % (20.5-51.1); MCV 87.3 FL (81-99); MONO# 1.12 X1000 (0.11-0.59); MONO% 4.7 % (1.7-9.3); MPV 11.5 FL (7.4-10.4); NEUT# 22.04 X1000 (1.4-6.5); NEUT% 93.4 % (42.2-75.2); PLT 335 X1000 (130-400); RBC 5.29 XMIL (4.2-5.4); RDW 13.6 % (11.5-14.5); WBC 23.61 X1000 (4.8-10.8)
[2019-03-06 13:15] LABS: BE 0.2 mmoll (-3.0-3.0); BLOOD TYPE ARTERIAL; HCO3-(ACT) 24.7 mmoll (20.0-26.0); METHB 1.4 % (0.0-1.5); O2(CT) 18.3 mL/dL (15.0-23.0); PCO2(98.6) 39 mmHg (35-45); SAMPLE BLOOD; SAO2 89.1 % (95.0-100.0); THB 15.3 g/dL (11.5-17.4); pH(98.6) 7.41 (7.35-7.45)
[2019-03-06 13:20] LABS: INR 0.99; PROTIME 13.6 Seconds (11.0-16.0)
[2019-03-06 13:21] LABS: PTT 36.1 Seconds (22.3-41.8)
[2019-03-06 13:23] LABS: ALLEN TEST YES; MODALITY ROOM AIR; O2HB 85.4 % (95.0-99.0); PO2(98.6) 49 mmHg (60-100)
[2019-03-06 13:26] LABS: ALBUMIN 3.9 g/dL (3.5-5.0); CALCIUM 9.9 mg/dL (8.8-10.2); CREATININE 1.2 mg/dL (0.5-0.9); MAGNESIUM 2.1 mg/dL (1.5-2.7); POTASSIUM 3.1 mmol/L (3.5-5.1); TOTAL BILIRUBIN 0.3 mg/dL (0.20-1.00); TOTAL PROTEIN 7.4 g/dL (6.3-8.3)
[2019-03-06 13:28] LABS: EOS 1 % (1-10); MONO 1 % (1-9); SEGS 97 % (42-75)
[2019-03-06 13:30] LABS: INFLUENZA A NEGATIVE (NEGATIVE); INFLUENZA B NEGATIVE (NEGATIVE)
--- NOTE | 2019-03-06 13:50 | PROVIDER DOCUMENTATION ---
This chart was entered by Susan Camarillo Scribe, acting as scribe for Jose Osborne MD. HPI-Fever - General Chief Complaint: Fever Stated Complaint: FEVER 105 03/05/2019 @ 19:00 Time Seen by Provider: 03/06/19 12:32 Source: patient, family (daughter) Allergies/Adverse Reactions: Patient Allergies Allergy/AdvReac Type Severity Reaction Status Date / Time No Known Allergies Allergy Verified 03/06/19 12:34 Home Medications: Home Medication List Medication Instructions Recorded Confirmed Last Taken Type Levothyroxine [Synthroid] 75 mcg PO DAILY 03/23/15 10/08/18 12/05/16 History Metoprolol Tartrate 50 mg PO BID 06/09/16 10/08/18 12/04/16 History Multivit-Min/Iron Fum/Folic AC 1 each PO DAILY 08/21/16 10/08/18 08/21/16 History [Ajrdu-Nielhod-Ruobylkx Tablet] Tramadol HCl 50 mg PO BID PRN 12/05/16 10/08/18 Unknown History - History of Present Illness-Fever Nature of Presenting Problem: Pt is a 73 yowf brought to the ED by her daughter this afternoon running a fever of 102 w/ uncontrollable shaking. Pt was seen in clinic yesterday running a fever of 105 and received medications and was told if symptoms did not improve to come to the ED. Pt has a productive cough, chest pain but denies chills. Pt appears ill but not in distress. 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 denies: nausea, syncope, vomiting Recently seen or treated by another doctor?: Yes (clinic yesterday given antibiotics and steroid shot) Review of Systems - Adult - REVIEW OF SYSTEMS - ADULT Constitutional: reports: see HPI, fever. denies: chills Eyes: reports: see HPI, discharge (right eye) Ears, Nose, Mouth & Throat: reports: no symptoms reported Cardiovascular: reports: chest pain (started today), irregular heart rate Respiratory: reports: see HPI, cough (productive) Gastrointestinal: denies: nausea, vomiting Genitourinary: reports: no symptoms reported Musculoskeletal: reports: no symptoms reported Integumentary: reports: no symptoms reported Neurological: denies: dizziness/vertigo, syncope Psychiatric: reports: no symptoms reported Endocrine: reports: no symptoms reported Hematologic/Lymphatic: reports: no symptoms reported Allergic/Immunologic: reports: no symptoms reported All Other Systems: Reviewed and Negative Past History - Adult - PAST MEDICAL HISTORY-ADULT Review of Records: reports: Old Records Reviewed, Nursing Assessment Review, Medications Reviewed, Social history reviewed & non-contributory. Major Childhood Illnesses: reports: denies history Cardiovascular: reports: arrhythmia, HTN Respiratory: reports: asthma Gastrointestinal: reports: denies history Genitourinary: reports: denies history Musculoskeletal: reports: denies history Neurological: reports: denies history Endocrine/Immune: reports: thyroid disorder Other Conditions: reports: cataract/glaucoma (removal in October 2018) - PRIOR SURGERIES/PROCEDURES Surgical/Procedure History: reports: appendectomy, cholecystectomy, other (partial colon resection) - IMMUNIZATION STATUS Childhood Immunizations: See Nurse Assessment Flu Vaccine: See Nurse Assessment - FAMILY HISTORY Family History: reviewed, not pertinent - SOCIAL HISTORY Smoking: cigarettes (pt states that she quit 2 days ago), less than 1 pack/day Provider spent 3-5 mins advising pt. on dangers of tobacco.: Discussed manners to quit use, and f/u contacts for add'l counseling. Substance Use: denies Living Situation: family (daughter) Physical Exam-General - PHYSICAL EXAM-ADULT Initial Vital Signs Reviewed: Yes (HR 102, O2 90 RA) - CONSTITUTIONAL General Appearance: alert, no apparent distress, other (ill) - EYES Eyes: PERRL/EOMI, other (conjunctivitus discharge) - HEAD, EARS, NOSE, MOUTH & THROAT HENMT: normocephalic/atraumatic, other (dry mucus membranes, geographic tongue) - NECK Neck: non-tender, full range of motion - RESPIRATORY Respiratory: rhonchi (in base and mid lung), wheezing, other (tachypneic) - CARDIOVASCULAR Cardiovascular: tachycardia, irregularly irregular - GASTROINTESTINAL (ABDOMEN) Abdominal Exam: normal bowel sounds, non tender, soft - MUSCULOSKELETAL Back Exam: normal inspection, no CVA tenderness, no vertebral tenderness Extremity: normal range of motion, non-tender, normal gait, normal inspection - SKIN Integumentary: normal color, normal turgor, warm/dry - NEUROLOGIC Neurologic: grossly normal - PSYCHIATRIC Psych/Mental Status: normal thought content, normal thought process, oriented x 3, tearful Progress - PLAN OF CARE/RESULTS Progress/Plan/Lab Results: Vital Signs - 8 hr 03/06/19 12:32 03/06/19 12:35 03/06/19 13:12 Temperature 97.5 F L Pulse Rate 102 H 105 H Respiratory Rate 19 21 22 Blood Pressure 135/67 O2 Sat by Pulse Oximetry 90 L 03/06/19 13:27 Temperature Pulse Rate 117 H Respiratory Rate 18 Blood Pressure 154/86 O2 Sat by Pulse Oximetry 95 Laboratory Results - last 24 hr 03/06/19 03/06/19 03/06/19 12:53 12:53 12:53 WBC 23.61 H RBC 5.29 Hgb 14.8 Hct 46.2 MCV 87.3 MCH 28.0 MCHC 32.0 L RDW Std Deviation 13.6 Plt Count 335 MPV 11.5 H Immature Gran % (Auto) 0.3 Neut % (Auto) 93.4 H Lymph % (Auto) 1.6 L Dukes % (Auto) 4.7 Eos % (Auto) 0.0 Baso % (Auto) 0.0 Immature Gran # (Auto) 0.06 H Neut # (Auto) 22.04 H Lymph # (Auto) 0.38 L Dukes # (Auto) 1.12 H Eos # (Auto) 0.00 Baso # (Auto) 0.01 Segmented Neutrophils 97 H Monocytes 1 Eosinophils 1 Atypical Lymphocytes 1.0 PT INR PTT (Actin FS) Specimen Type Sample Site pH pCO2 pO2 HCO3 Base Excess Oxyhemoglobin ABG O2 Sat (Calculated) ABG O2 Saturation ABG Carboxyhemoglobin ABG Methemoglobin Iker Test A-a O2 Difference Total Hemoglobin Lactate Blood Gas Modality FiO2 % Sodium 141 Potassium 3.1 L Chloride 100 Carbon Dioxide 23 L Anion Gap 18 BUN 27 H Creatinine 1.2 H Estimated GFR/1.73 m2 44 BUN/Creatinine Ratio 23 Glucose 208 H Calculated Osmolality 292 Calcium 9.9 Magnesium 2.1 Total Bilirubin 0.30 AST 15 ALT 9 L Alkaline Phosphatase 105 H Creatine Kinase 72 Troponin T Qdw-[id number]-Acnvzzssluh Pept Total Protein 7.4 Albumin 3.9 Globulin 4.0 Albumin/Globulin Ratio 1.0 Plasma Lactate Influenza A (Rapid) NEGATIVE Influenza B (Rapid) NEGATIVE 03/06/19 03/06/19 03/06/19 12:53 12:53 12:53 WBC RBC Hgb Hct MCV MCH MCHC RDW Std Deviation Plt Count MPV Immature Gran % (Auto) Neut % (Auto) Lymph % (Auto) Dukes % (Auto) Eos % (Auto) Baso % (Auto) Immature Gran # (Auto) Neut # (Auto) Lymph # (Auto) Dukes # (Auto) Eos # (Auto) Baso # (Auto) Segmented Neutrophils Monocytes Eosinophils Atypical Lymphocytes PT 13.6 INR 0.99 PTT (Actin FS) 36.1 Specimen Type Sample Site pH pCO2 pO2 HCO3 Base Excess Oxyhemoglobin ABG O2 Sat (Calculated) ABG O2 Saturation ABG Carboxyhemoglobin ABG Methemoglobin Iker Test A-a O2 Difference Total Hemoglobin Lactate Blood Gas Modality FiO2 % Sodium Potassium Chloride Carbon Dioxide Anion Gap BUN Creatinine Estimated GFR/1.73 m2 BUN/Creatinine Ratio Glucose Calculated Osmolality Calcium Magnesium Total Bilirubin AST ALT Alkaline Phosphatase Creatine Kinase Troponin T < 0.010 Qrq-T-Nkqsdsjaibh Pept Total Protein Albumin Globulin Albumin/Globulin Ratio Plasma Lactate 4.4 H* Influenza A (Rapid) Influenza B (Rapid) 03/06/19 03/06/19 12:53 12:58 WBC RBC Hgb Hct MCV MCH MCHC RDW Std Deviation Plt Count MPV Immature Gran % (Auto) Neut % (Auto) Lymph % (Auto) Dukes % (Auto) Eos % (Auto) Baso % (Auto) Immature Gran # (Auto) Neut # (Auto) Lymph # (Auto) Dukes # (Auto) Eos # (Auto) Baso # (Auto) Segmented Neutrophils Monocytes Eosinophils Atypical Lymphocytes PT INR PTT (Actin FS) Specimen Type ARTERIAL Sample Site L RADIAL pH 7.41 pCO2 39 pO2 49 L* HCO3 24.7 Base Excess 0.2 Oxyhemoglobin 85.4 L* ABG O2 Sat (Calculated) 18.3 ABG O2 Saturation 89.1 L ABG Carboxyhemoglobin 2.80 H ABG Methemoglobin 1.4 Iker Test YES A-a O2 Difference 52.0 Total Hemoglobin 15.3 Lactate 3.50 H Blood Gas Modality ROOM AIR FiO2 % 21.0 Sodium Potassium Chloride Carbon Dioxide Anion Gap BUN Creatinine Estimated GFR/1.73 m2 BUN/Creatinine Ratio Glucose Calculated Osmolality Calcium Magnesium Total Bilirubin AST ALT Alkaline Phosphatase Creatine Kinase Troponin T [id number]-Nskepwbyxuq Pept 1958 H Total Protein Albumin Globulin Albumin/Globulin Ratio Plasma Lactate Influenza A (Rapid) Influenza B (Rapid) Orders Category Date Time Status Cardiac Monitoring DIRECTED Care 03/06/19 12:43 Active IV Insertion ORDERED Care 03/06/19 12:43 Completed Notify MD of + Sepsis Screen NOW Care 03/06/19 12:43 Active Notify Physician As Ordered Care 03/06/19 12:43 Active Nursing- Obtain EKG once Care 03/06/19 12:45 Active CHEST-2 VIEWS [RAD] Stat Exams 03/06/19 12:44 Ordered ABG [RESP] Routine Lab 03/06/19 12:58 Completed BLOOD CULTURE [BLDCUL] Stat Lab 03/06/19 12:56 Ordered CBC WITH DIFF [HEME] Stat Lab 03/06/19 12:53 Completed CK PROFILE [SP CHEM] Stat Lab 03/06/19 12:53 Completed COMPREHENSIVE METABOLIC PANEL [CHEM] Stat Lab 03/06/19 12:[address] Stat Lab 03/06/19 12:53 Completed LACTATE, PLASMA [CHEM] Lab 03/06/19 12:53 Completed LACTATE, PLASMA [CHEM] Lab 03/06/19 15:45 Uncollected LACTATE, PLASMA [CHEM] Lab 03/06/19 18:45 Uncollected MAGNESIUM [CHEM] Stat Lab 03/06/19 12:53 Completed PRO B-NATRIURETIC PEPTIDE Stat Lab 03/06/19 12:53 Completed PROTIME WITH INR [COAG] Stat Lab 03/06/19 12:53 Completed PTT [COAG] Stat Lab 03/06/19 12:53 Completed SPUTUM CULTURE WITH GRAM STAIN [RM] Stat Lab 03/06/19 12:44 Uncollected TROPONIN T Stat Lab 03/06/19 12:53 Completed URINALYSIS W/POSS RFLX CULT [URINALYSIS] Stat Lab 03/06/19 12:34 Uncollected 0.9% Sodium Chloride Inj [Ns] 1,000 ml Med 03/06/19 12:46 Active IV 999 mls/hr 0.9% Sodium Chloride Inj [Ns] 1,000 ml Med 03/06/19 12:46 Active IV 999 mls/hr Albuterol 2.5MG/Ipratrop 0.5MG [Duoneb (A & A)] Med 03/06/19 12:44 Discontinued 3 ml INH NOW ONE Azithromycin 500 mg/Ns [Zithromax 500 mg/Ns] Med 03/06/19 12:44 Discontinued 500 mg in 250 ml IV NOW CefTRIAXONE [Rocephin] 1 gm Med 03/06/19 12:44 Discontinued 0.9% Sodium Chloride Inj [Ns] 50 ml IV NOW Methylprednisolone Sod Succ [Solu-Medrol] Med 03/06/19 12:44 Discontinued 125 mg IV NOW ONE Potassium Chloride 20 Meq/Swi Med 03/06/19 14:00 Active 20 meq in 100 ml IV Q4H Aerosol Treatments Routine Oth 03/06/19 12:44 Completed Aerosol Treatments Stat Oth 03/06/19 12:44 Completed Oxygen Device Stat Oth 03/06/19 12:43 Active EKG [EKG] Stat Ther 03/06/19 12:45 Draft Result Diagrams: 03/06/19 12:53 03/06/19 12:53 - REASSESSMENT Reassessment #1 Time Reassessed: 13:34 Status: unchanged Reassessment Comment: at bedside discussing POC Reassessment #2 Time Reassessed: 13:46 Status: improving (Given 3 duoneb treatments, IV solumedrol, Given 30ml/kg bolus of NS, Given IV rocephin/zithromax for likely CAP. Given supplemental O2 for hypoxemia on RA. Patient meets criteria for septic shock with lactate greater than 4.) - EKG 1 Time of EKG reading by physician:: 12:49 EKG Read and Signed by:: Jose Osborne EKG Interpretation (*Must complete 3 of following elements*): Abnormal Rate: 115 Rhythm: Afib, RVR QRS: PVC's (Preq multifocal) ST Wave: normal, non-specific ST changes Comments: prolonged QTL - XRAY 1 XRAY Study: Chest Impression: Abnormal (Read by me at 1344: ? RML infiltrate, Hiatal Hernia, cephalization of veins, kyphoscoliosis) - CONSULTS/PCP/HOSPITALIST Notification #1 *Consult/PCP/Hospitalist*: rick Kirk, piyush at 1345 Procedures - ADDITIONAL PROCEDURES Additional Procedure: OTHER (Hypoxemia, needs more O2, No acidosis) Departure - Departure Date of Disposition Decision: 03/06/19 Time of Disposition Decision: 13:47 DIAGNOSIS: Septic shock, Community acquired bilateral lower lobe pneumonia, COPD with acute exacerbation, Hypoxemia, Tobacco use disorder Disposition: ADMITTED INPATIENT 09 Certified Medical Emergency: Emergent Condition: Fair Referrals and Follow-Ups: Dayan Allen MD [Primary Care Provider] - Discharge Education: Steps to Quit Smoking, Lfti-au-Aenj - Critical Care Note This patient required my direct & personal management of CC.: Yes Total Time (mins): 45 Critical Care Statement: This patient required my direct personal management to treat or rule out processes, the absence of which, could potentiallly result in sudden, clinically significant life or limb threatening deterioration. Attestation - Physician/ FERNIE Attestation Patient care was provided by Advanced Practice Provider:: No The physician spent face to face time with patient:: Yes Advanced Practice Provider documentation review:: Supervising physician onsite and consulted in the evaluation and care of this patient. The physician did have a face to face encounter with the patient. This chart was documented by the indicated scribe, (Susan Camarillo, Pankajibliz) and accurately reflects the services I performed and decisions made by me, Jose Osborne MD, as attested by the provider's signature.
--- NOTE | 2019-03-06 13:52 | SEPSIS: TISSUE PERFUSION ASSMT ---
Sepsis: Tissue Perfusion [facility] - Physical Exam Assessment Date: 03/06/19 Time Assessment Initialized: 13:50 Vital Signs: Last Vital Signs Temp 97.5 F L 03/06/19 12:32 Pulse 117 H 03/06/19 13:27 Resp 18 03/06/19 13:27 BP 154/86 03/06/19 13:27 Pulse Ox 95 03/06/19 13:27 Height 5 ft 1 in Weight 54.431 kg 03/06/19 Lung Sounds:: wheezing, rhonchi Heart Sounds:: Irregular (tachycardic) Capillary Refill Time: Less Than 2 Seconds Peripheral Pulse Evaluation:: radial (R): 2+, radial (L): 2+ Skin Exam:: flushed, pink, turgor good - Impression Impression:: Tissue Perfusion Adequate - Plan Plan:: See Orders (admit to hospitalist)
[2019-03-06] MEDS ORDERED: POTASSIUM CHLORIDE 20 MEQ/SWI 20 MEQ/100 ML IVPB IV SCH (14:00)
[2019-03-06] MEDS ORDERED: DUONEB (A & A) INH PRN (14:02)
[2019-03-06] MEDS ORDERED: ULTRAM PO PRN (14:04)
--- NOTE | 2019-03-06 14:06 | Diag Imaging Result Doc PS360 ---
EXAM: CHEST-2 VIEWS INDICATION: short of breath TECHNIQUE: 2 views COMPARISON: 12/07/2016 FINDINGS: There is mild coarse interstitial thickening bilaterally that is stable suggesting mild fibrotic change. The lungs are grossly clear, otherwise. There is no discrete pleural fluid collection or pneumothorax. There is a stable hiatal hernia. The cardiomediastinal silhouette and central vasculature are unremarkable, otherwise. IMPRESSION: Stable chronic appearing interstitial thickening and a stable hiatal hernia. No definite acute pathology, otherwise. Electronically signed by Librado Sweet 03/06/2019 2:04 PM
[2019-03-06] MEDS ORDERED: ZOFRAN IV PRN (14:16)
[2019-03-06] MEDS ORDERED: KLOR-CON PO ONE (14:17)
[2019-03-06] MEDS: NS 1,000 ML IV SCH (14:34)
[2019-03-06] MEDS: TYLENOL PO PRN (14:34)
[2019-03-06] MEDS: ZOSYN 3.375 GM in NS 50 ML IV SCH ×2 (14:34→21:32)
[2019-03-06 14:36] LABS: URINE SOURCE CATH
[2019-03-06 14:36] LABS: HEMOGLOBIN A1C 5.4 % (4.8-6.0)
[2019-03-06 14:56] LABS: BILIRUBIN URINE NEGATIVE (NEGATIVE); COLOR YELLOW; GLUCOSE URINE NEGATIVE (NEGATIVE); TURBIDITY URINE CLEAR (CLEAR); UR EPITHELIAL CELLS <10 /HPF (<10); URINE WBC <10 /HPF (<10)
[2019-03-06 14:57] LABS: KETONE URINE TRACE mg/dL (NEGATIVE); PH URINE 6.5
--- NOTE | 2019-03-06 14:58 | HISTORY AND PHYSICAL ---
ADDENDUM REPORT The patient was seen and examined by me face to face. All of the laboratory, vital signs, and images were reviewed. The patient presented to the emergency department with the chief complaint of shortness of breath and fever. As per the patient and the family member which is at the bedside, her daughter, this patient had an episode of fever of 105 along with shortness of breath. On top of that, this patient has a history of COPD, but surprisingly, she is not wheezing at this moment. X-ray does not look that bad, but I believe she has some infiltrates at the bases. On the physical exam, she has bilateral rhonchi with some crepitus at the bases, prolonged respiratory phase but no wheezing. This patient is completely awake, alert, and oriented x3. She has been coughing up phlegm, which is green. She will be placed on breathing treatment, oxygen supplementation, antibiotics. She is not on home O2. We will get the lactate level a couple more times. She is septic due to likely pneumonia with a white blood cell count of 23.6. She is tachycardic. She is hypoxemic. She does have some mild acute kidney injury. We will continue with the IV fluids. I will replace the potassium. I will start this patient on Zosyn, breathing treatment, oxygen supplementation, and monitor this patient closely. I agree with the rest of the nurse practitioner's assessment and plan. cc: Wade Duenas MD
[2019-03-06 14:59] LABS: URINE BACTERIA 1+ /HPF
[2019-03-06 15:00] LABS: BLOOD URINE NEGATIVE (NEGATIVE); NITRITE URINE NEGATIVE (NEGATIVE); UROBILINOGEN URINE NORMAL (NORMAL)
[2019-03-06 15:01] LABS: LEUKOCYTES URINE TRACE (NEGATIVE); PROTEIN URINE 50 mg/dL (NEGATIVE)
--- NOTE | 2019-03-06 15:05 | HISTORY AND PHYSICAL ---
PRIMARY CARE PROVIDER: Dr. Dayan Brody. CHIEF COMPLAINT: Shortness of breath and cough. HISTORY OF PRESENT ILLNESS: Ms. Mackenzie Pacheco is a 73-year-old, female with a medical history of hypertension, COPD, hypothyroidism, skin cancer, who presents with a complaint of 2 to 3 days worth of a cough, coughing up green phlegm, chest pain that is with inspiration and with cough only, presented to Urgent Care last night with a fever of 105. They gave her azithromycin and prednisone and sent her home. She comes back with continued complaints and worsening symptoms of shortness of breath. She is found to be mildly hypoxic on room air. She does not use oxygen at home. She has got full body aches as well. Apparently, they did do a flu test, which was negative at the Urgent Care, but we will go ahead and repeat that. PAST MEDICAL HISTORY: 1. Hypertension. 2. COPD. 3. Hypothyroidism. 4. Skin cancer. 5. Chronic back pain back. PAST SURGICAL HISTORY: 1. Appendectomy. 2. Cholecystectomy. 3. Partial colon resection secondary to polyps. 4. Bilateral cataract surgery. SOCIAL HISTORY: Half pack per day since her 20s. Denies any alcohol or illicit drug use. Her son lives with her. FAMILY HISTORY: Mother had Alzheimer's. Father had a heart attack in his 50s. Daughter has hypothyroidism. There is also heart disease in one of her sons. ALLERGIES: No known drug allergies. HOME MEDICATIONS: They have not been reconciled yet, but what is listed from 2017 is metoprolol, multivitamin, Synthroid, and Ultram. REVIEW OF SYSTEMS: A 14-point review of systems was complete, and all were negative, except for those mentioned in the above HPI. PHYSICAL EXAMINATION: VITAL SIGNS: Temperature 97.5 degrees, heart rate 117, respiratory rate 18, blood pressure 154/86, O2 saturation 95% on 2 L nasal cannula. GENERAL: Ms. Mackenzie Pacheco is a 73-year-old, female. She is in no acute distress. She is able to answer questions appropriately. HEENT: Atraumatic, normocephalic. Pupils equal, round, reactive to light. Extraocular movements intact. Mucous membranes are dry. NECK: Trachea midline. CARDIOVASCULAR: S1, S2. Tachycardic rate and rhythm. No rubs, gallops, murmurs. No lower extremity edema. There are +2 dorsalis and radial pulses. Negative for JVD or carotid bruits. PULMONARY: Clear to auscultate, except mild rhonchi in bilateral bases. No accessory muscle use or work of breathing noted. Tolerating nasal cannula 2 L. GASTROINTESTINAL: Soft, nontender, nondistended. Positive bowel sounds x4. EXTREMITIES: Moves all extremities equally with decreased range of motion. NEUROLOGIC: A and O x3. Follows commands. Sensory is intact. SKIN: Warm, dry, intact. LABORATORY DATA: White blood cells 23,000, hemoglobin 14, hematocrit 46, platelet count 335,000. INR 0.9, PTT is 36.1. ABGs on room air: PH 7.41, pCO2 of 39, pO2 of 49, bicarb 24, base excess 0.2, saturation 85%. Lactate 3.5. Serum lactate is 4.4. Sodium 141, potassium 3.1, BUN 27, creatinine is 1.2, glucose 208, calcium 9.9. Magnesium 2.1. Bilirubin 0.30, AST 15, ALT 9. CK 72. Troponin less than 0.01. ProBNP 1959. Albumin 3.9. Flu is negative. IMAGING: Still waiting for chest x-ray results. EKG: She is sinus tachycardia with PACs and multifocal PVCs. No ST elevations. Rate is 115. QTc is 492. ASSESSMENT AND PLAN: 1. Sepsis, most likely secondary to pneumonia, elevated lactate, elevated white blood cell count, tachycardia, reported fever yesterday. She will be on Zosyn. She is getting some intravenous fluids. Will do serial lactates. 2. Acute hypoxemic respiratory failure secondary to chronic obstructive pulmonary disease with mild exacerbation. She is on oxygen. She will be on nebulizers and intravenous steroids. 3. Hypertension. Most likely, will continue beta malka once it is verified. 4. Hypothyroidism. We will continue Synthroid once it is verified. 5. Hyperglycemia. Could be steroid-induced. There is no reported history of diabetes. She has not had a hemoglobin A1c on any of her past admission, so will add a hemoglobin A1c. 6. Hypokalemia. Will replace that. 7. Acute kidney injury, most likely dehydration. Again, she will get intravenous fluid hydration. 8. Deep venous thrombosis prophylaxis. Heparin subcutaneously every 12 hours. 9. Tobacco abuse cessation discussed. Dictated by SHIVANI Martin for Wade Duenas MD cc: SHIVANI Martin MD
[2019-03-06] MEDS: DUONEB (A & A) INH SCH ×3 (16:12→22:47)
[2019-03-06] MEDS ORDERED: FLU VACCINE IM ONE (19:25)
[2019-03-06] MEDS ORDERED: PNEUMOVAX 23 IM ONE (19:26)
[2019-03-06] MEDS: HEPARIN SUBQ SCH (21:32)
[2019-03-07] MEDS: NS 1,000 ML IV SCH ×2 (01:22→15:34)
[2019-03-07] MEDS: ZOSYN 3.375 GM in NS 50 ML IV SCH ×4 (02:16→22:54)
[2019-03-07] MEDS: DUONEB (A & A) INH SCH ×6 (02:37→22:49)
[2019-03-07 06:01] LABS: BASO# 0.01 X1000 (0.0-0.2); HEMATOCRIT 40.6 % (37.0-47.0); HEMOGLOBIN 12.6 g/dL (12.0-16.0); IMM GRAN# 0.11 X1000 (0.0-0.04); IMM GRAN% 0.5 % (0.0-0.5); LYMPH# 0.59 X1000 (1.2-3.4); LYMPH% 2.7 % (20.5-51.1); MCH 27.7 PG (27-31); MCV 89.2 FL (81-99); MONO# 0.67 X1000 (0.11-0.59); MONO% 3.1 % (1.7-9.3); NEUT# 20.22 X1000 (1.4-6.5); NEUT% 93.7 % (42.2-75.2); PLT 309 X1000 (130-400); RBC 4.55 XMIL (4.2-5.4); RDW 13.9 % (11.5-14.5)
[2019-03-07] MEDS: SYNTHROID PO SCH (06:18)
[2019-03-07 06:23] LABS: AGAP 12; ALBUMIN 3.4 g/dL (3.5-5.0); ALKALINE PHOSPHATASE 96 U/L (32-104); BUN 23 mg/dL (8-22); CALCIUM 8.8 mg/dL (8.8-10.2); CHLORIDE 111 mmol/L (98-107); COSMO 292; CREATININE 0.9 mg/dL (0.5-0.9); ESTIMATED GFR > 60; GLUCOSE 134 mg/dL (70-104); GOT 16 U/L (10-30); GPT 9 U/L (10-36); POTASSIUM 3.6 mmol/L (3.5-5.1); SODIUM 144 mmol/L (136-145); TCO2 22 mmol/L (25-35); TOTAL PROTEIN 6.3 g/dL (6.3-8.3)
[2019-03-07 07:52] LABS: LYMPHS 3 % (21-51); MONO 4 % (1-9); SEGS 93 % (42-75)
--- NOTE | 2019-03-07 08:32 | EKG Report ---
Test Performed on : 03/06/2019 4:33:28 PM Test Reason : Telemetry changes Blood Pressure : / mmHG Vent. Rate : 112 BPM Atrial Rate : 112 BPM P-R Int : 156 ms QRS Dur : 086 ms QT Int : 388 ms P-R-T Axes : 072 -09 041 degrees QTc Int : 529 ms Sinus tachycardia. with frequent and consecutive premature ventricular complexes. and fusion complexe s Low voltage QRS Nonspecific ST and T wave abnormality Prolonged QT Abnormal ECG When compared with ECG of 06-MAR-2019 12:46, (Unconfirmed) Previous ECG has undetermined rhythm, needs review Confirmed by Nilesh Ayers MD ([id number]) on 03/07/2019 9:27:53 PM
[2019-03-07] MEDS: HEPARIN SUBQ SCH (09:25)
--- NOTE | 2019-03-07 14:35 | PROGRESS NOTE ---
DATE: 03/07/2019 SUBJECTIVE: Patient has no major complaints. OBJECTIVE: Blood pressure is 150/82, heart rate of 78, respiratory rate of 14, temperature was 98 degrees, 96% on 2 L.Cardiovascular: Regular rate and rhythm. Pulmonary: Bilateral breath sounds with rhonchi but no andrzej wheezing. GI: Soft, nontender, nondistended. Bowel sounds were positive. LABORATORY DATA: Her white count is 21,000, hemoglobin and hematocrit 12 and 40, platelets 309,000. BUN and creatinine 23 and 0.9. Albumin 3.4. Repeat plasma lactate is down to 1.6 from 4.1 yesterday. PROBLEM LIST: 1. Acute chronic obstructive pulmonary disease exacerbation. We will continue breathing treatments, steroids, is she on steroids no probably will continue well let us see here say she had been on steroids, maybe not. She still has a little bit of wheezing so I am going to put her on a little bit of steroids here and we will continue to follow. 2. Pneumonia with initial sepsis that has resolved. We will get a CT of her chest just to better evaluate for actual pneumonia. Her chest x-ray was not read as anything acute. 3. Acute hypoxic respiratory failure. Aware. Will continue to monitor. Wean O2 as tolerated. DISPOSITION: Possibly home in the next 1 to 2 days. Sputum culture has been obtained. We will continue to follow closely. cc: Arron Duncan MD
--- NOTE | 2019-03-07 15:01 | Diag Imaging Result Doc PS360 ---
EXAM: CT THORAX W/CONTRAST - 03/07/2019 HISTORY: pneumonia TECHNIQUE: CT thorax with intravenous contrast COMPARISON: 03/06/2019 chest radiographs, 02/11/2017 CT thorax without contrast FINDINGS: There are scarring and atelectasis at the anterior medial right middle lobe which have increased mildly. There is mild atelectasis or scarring at the inferior left lingula similar to prior. There is no other consolidation, pleural effusion, or pneumothorax identified. There are no abnormally enlarged mediastinal or hilar lymph nodes identified. There are atherosclerotic calcifications, including coronary artery calcifications, noted. There is a hiatal hernia similar to prior, except for the hiatal hernia being more distended with fluid on this exam compared to prior. There is mild low-density fullness of bilateral adrenal gland similar to prior and likely related to adrenal adenomas. There is a possible midline anterior abdominal wall hernia, but this is only visible on the inferior most images of this exam. IMPRESSION: Mild increase in scarring and atelectasis at anterior medial right middle lobe. No discrete pneumonia. Hiatal hernia, which is distended with fluid. This exam was performed using automated exposure control, adjustment of mA or kV according to patient size, and/or use of iterative reconstruction technique. Electronically signed by Saran Calderón 03/07/2019 2:58 PM
[2019-03-07] MEDS: SOLU-MEDROL IV SCH (15:34)
[2019-03-07] MEDS: TYLENOL PO PRN (18:04)
[2019-03-08] MEDS: DUONEB (A & A) INH SCH ×6 (02:40→22:59)
[2019-03-08] MEDS: ZOSYN 3.375 GM in NS 50 ML IV SCH ×4 (03:21→20:26)
[2019-03-08] MEDS: SOLU-MEDROL IV SCH ×2 (03:21→15:13)
[2019-03-08] MEDS: LOVENOX SUBQ SCH (06:36)
[2019-03-08] MEDS: SYNTHROID PO SCH (06:36)
[2019-03-08] MEDS: TYLENOL PO PRN ×2 (06:48→15:19)
[2019-03-08 07:08] LABS: HEMATOCRIT 40.3 % (37.0-47.0); HEMOGLOBIN 12.1 g/dL (12.0-16.0); MCH 27.1 PG (27-31); MCV 90.4 FL (81-99); MPV 11.7 FL (7.4-10.4); RBC 4.46 XMIL (4.2-5.4); RDW 14.2 % (11.5-14.5); WBC 17.71 X1000 (4.8-10.8)
[2019-03-08 07:14] LABS: CALCIUM 8.5 mg/dL (8.8-10.2)
[2019-03-08] MEDS: THERA M PLUS PO SCH (09:21)
[2019-03-08] MEDS: NS 1,000 ML IV SCH (12:49)
--- NOTE | 2019-03-08 15:32 | PROGRESS NOTE ---
DATE: 03/08/2019 SUBJECTIVE: The patient has no major complaints. She is lying in bed. She is sleeping. She is on 3 L of oxygen. OBJECTIVE: Vital Signs: Blood pressure 167/57, heart rate 70, respiratory 18, temperature 97.4 degrees, 95% on 3 L. Cardiovascular: Regular rate and rhythm. Pulmonary: Bilateral breath sounds clear to auscultation. GI: Soft, nontender, nondistended. Bowel sounds are positive. LABORATORY DATA: White count is 17, hemoglobin and hematocrit 12 and 40, platelets 281,000. Rest of her electrolytes look okay. IMPRESSION: 1. Chronic obstructive pulmonary disease exacerbation, acute, with relative hypoxia. We will continue treatments. She is really on very low-dose steroids, we are just going to watch her on that, but I think she seems to be doing okay on that. 2. Bronchitis. There is no clear evidence of pneumonia. We will check a procalcitonin. She is on antibiotics. She seems to be doing okay. 3. Acute hypoxic respiratory failure. We will continue treatment, O2 weaning. I am suspicious she will need home oxygen, but we will follow. 4. Hypothyroidism. Thyroid functions are stable on current medications. DISPOSITION: Anticipate discharge possibly tomorrow. cc: Arron Duncan MD
[2019-03-08] MEDS ORDERED: APRESOLINE IV ONE (16:42)
[2019-03-09] MEDS: ZOSYN 3.375 GM in NS 50 ML IV SCH ×3 (02:00→13:41)
[2019-03-09] MEDS: DUONEB (A & A) INH SCH ×3 (02:49→11:04)
[2019-03-09] MEDS: SYNTHROID PO SCH (06:28)
[2019-03-09] MEDS: LOVENOX SUBQ SCH (06:28)
[2019-03-09] MEDS: THERA M PLUS PO SCH (08:04)
[2019-03-09] MEDS ORDERED: PREDNISONE PO SCH (09:00)
[2019-03-09] MEDS ORDERED: NORVASC PO SCH (09:00)
--- NOTE | 2019-03-09 13:44 | PROGRESS NOTE ---
DATE: 03/09/2019 SUBJECTIVE: She has no major complaints. Breathing is better. OBJECTIVE: Vital Signs: Blood pressure has been high today, 190/90, 170 and unequal. Cardiovascular: Regular rate and rhythm. Pulmonary: Bilateral breath sounds. No wheezing. No rales. GI: Soft, nontender, nondistended. Bowel sounds are positive. LABORATORY DATA: White count is down to 17. I do not have new data today. Creatinine is right at 1. PROBLEM LIST: 1. Acute chronic obstructive pulmonary disease exacerbation. She is doing okay. Will do a steroid taper, and then will see how she does. 2. Bronchitis. I converted her over to Augmentin. She has been on Zosyn. 3. Acute hypoxic respiratory failure. Will evaluate for home oxygen. 4. Disposition. I think if she is stable, we could potentially send her home today. 5. New problem today is hypertension, for which we started her on Norvasc. I think if the blood pressure improves and we can set up oxygen, if she needs it, then she should be able to go home. cc: Arron Duncan MD
[2019-03-09 13:53] VITALS: BP 154/65
--- NOTE | 2019-03-09 17:56 | DISCHARGE SUMMARY ---
ADMISSION DATE: 03/06/2019 DISCHARGE DATE: 03/09/2019 PRIMARY CARE PHYSICIAN: Dr. Dayan Allen. ADMISSION DIAGNOSES: 1. Sepsis most likely secondary to pneumonia, elevated lactate, elevated white blood cell count, tachycardia and reported fever. 2. Acute hypoxemic respiratory failure secondary to chronic obstructive pulmonary disease with mild exacerbation. 3. Hypertension. 4. Hypothyroidism. 5. Hyperglycemia. 6. Hypokalemia. 7. Acute kidney injury most likely dehydration. DISCHARGE DIAGNOSES: 1. An acute chronic obstructive pulmonary disease exacerbation. 2. Bronchitis. 3. Acute hypoxic respiratory failure. 4. Hypertension, new onset. SUMMARY OF FINDINGS: This is a 73-year-old female who presents with a 2 to 3 day history of cough of green phlegm, chest pain with inspiration and cough only, had gone to an urgent care the night before with a fever of 105. They discharged her on azithromycin and prednisone. She presented to the ER the next day with complaints of worsening symptoms of shortness of breath, was found to be mildly hypoxic on room air. No home O2 currently in use so she was admitted, placed on IV hydration, IV antibiotics, O2, nebulizers and IV steroids. She has improved. We did do a chest CT on 03/07/2019 that showed an impression of mild increase in scarring and atelectasis at the anterior medial right middle lobe but no discrete pneumonia. Her white count has come down. She has been afebrile for greater than 24 hours. She is noted to have had some elevated blood pressure readings was not noted to be on any antihypertensives at this time so we started her on Norvasc 5 mg daily. Blood pressure went from 190/95 down to 154/65 so it is now felt that she can safely be discharged home today. DISCHARGE MEDICATIONS: Will include DuoNeb q.6 hours, Norvasc 5 mg p.o. daily, Augmentin 500 mg p.o. b.i.d. #14 with no refills, Synthroid 75 mcg p.o. daily, a multivitamin p.o. daily, prednisone taper as directed and tramadol 50 mg p.o. b.i.d. All discharge instructions have been reviewed with the patient and she verbalized understanding. TIME SPENT: 35 minutes. Dictated by SHIVANI Nguyen for Arron Duncan MD cc: MD Arron Casey, MD
== END 2019-03-09 15:35 | disposition home health service (06) | DRG 871 ==
LOC: P.ED 12:29 → SUATTDRO 14:41 → P.MEDSURG 14:41
PROVIDERS: ATTEND Internal Medicine